=== PATIENT | male | born 1955 | race Caucasian/White ===

== ENCOUNTER → 2020-05-16 | Outpatient (CLI) | payer BC, OTHER ==
[~2020-05-16] MED LIST: ALLOPURINOL 30300 M1 PO; CLARITIN10 M3 PO; ESOMEPRAZOLE MA40 MG PO; EXCEDRIN PM PO; FISH OIL 1,4001 EACH PO; IBUPROFEN PM C1 EACH PO; LISINOPRIL-HCT1 EACH PO; MELATONIN10 M3 PO; SIMVASTATIN40 MG PO; XARELTO20 MG PO
== END ==
LOC: LAB 07:22
PROVIDERS: ATTEND Student in an Organized Health Care Education/Training Program
DX: Z01.818 Encounter for other preprocedural examination (principal); Z11.59 Encounter for screening for other viral diseases

== ENCOUNTER 2020-05-20 13:04 | Inpatient (IN) | payer BC ==
[2020-05-16 11:26] LABS: HEMATOCRIT 39.1 % (42.0-52.0); HEMOGLOBIN 13.6 gm/dL (14.0-18.0); MCH 32.2 pg (26.0-34.0); MCHC 34.8 g/dL (28.0-37.0); MCV 92.4 fL (80.0-100.0); RBC 4.23 mil/uL (4.50-6.00); RDW 14.1 % (10.5-14.5); WBC 4.2 thou/uL (4.0-11.0)
[2020-05-16 11:37] LABS: ALBUMIN 3.7 g/dL (3.4-5.0); CALCIUM 8.9 mg/dL (8.5-10.1); CREATININE 1.1 mg/dL (0.7-1.3); POTASSIUM 3.9 mmol/L (3.5-5.1); URINE BILIRUBIN NEGATIVE (Negative); URINE BLOOD NEGATIVE (Negative); URINE CLARITY CLEAR; URINE COLOR YELLOW; URINE GLUCOSE-RANDOM* NEGATIVE (Negative); URINE KETONES NEGATIVE (Negative); URINE LEUKOCYTES-REFLEX NEGATIVE (Negative); URINE NITRITE-REFLEX NEGATIVE (Negative); URINE PROTEIN (DIPSTICK) NEGATIVE (Negative); URINE UROBILINOGEN 0.2 E.U./dl (0.2-1.0)
[2020-05-16 11:47] LABS: INR 1.3
--- NOTE | 2020-05-17 11:34 | EKG ---
[facility] [place] [address] ELECTROCARDIOGRAM REPORT Name: ELIZABETH WRIGHT Room #: PRE [facility] M.R.#: [id number] Admission: Attend Phys: Paramjit Hernandez MD Discharge: Date of : 55 Report #: [id number] THIS REPORT FOR: cc: Nima Pearce MD, Christopher MD Couchonnal,Valdez Bardales MD ~ THIS REPORT FOR: //name// [facility] Test Date: 2020-05-16 Test Time: 10:40:57 Pat Name: ELIZABETH WRIGHT Department: Room: Gender: [employer]ing [employer]: [facility] : 1955 Requested By: Paramjit Hernandez Order Number: [id number] MD: Valdez Babcock Measurements Intervals Busy Rate: 54 P: 15 OR: 180 QRS: 10 QRSD: 89 T: 12 QT: 434 QTc: 412 Interpretive Statements Sinus rhythm Abnormal R-wave progression, early transition No previous ECG available for comparison Electronically Signed On 05-17-2020 11:33:58 CDT by Valdez Babcock [email or web address] <ELECTRONICALLY SIGNED> By: Valdez Babcock MD 05/17/20 1133 1040 1040 Valdez Babcock MD /BRANDY
[~2020-05-20] VITALS: Ht 160 cm; Wt 68.0 kg
[2020-05-20 13:48] VITALS: BP 122/84
[2020-05-20 19:35] VITALS: BP 129/75
--- NOTE | 2020-05-21 04:05 | NUR ---
PT WAS ADMITTED TO THE UNIT FROM PACU IN A STBALE CONDITION.PT ON O2 AT 2L/NC.DRSG TO HIS R KNEE C/D/I.POLAR PACK,SCD AND JARRET HOSE IN PLACE.URINAL AT BEDSIDE.FALL PRECAUTIONS IN PLACE,CALL LIGHT WITHIN REACH.
[2020-05-21 04:23] VITALS: BP 112/61
[2020-05-21 06:11] LABS: HEMATOCRIT 39.4 % (42.0-52.0); HEMOGLOBIN 13.6 gm/dL (14.0-18.0); MCH 31.9 pg (26.0-34.0); MCHC 34.6 g/dL (28.0-37.0); MCV 92.2 fL (80.0-100.0); RBC 4.27 mil/uL (4.50-6.00); WBC 9.9 thou/uL (4.0-11.0)
[2020-05-21 07:39] VITALS: BP 105/64
--- NOTE | 2020-05-21 08:50 | O ---
[address] [address] OPERATIVE REPORT Name: ELIZABETH WRIGHT Norma Room #: 445-P [facility] IN .R.#: [id number] Admission: 05/20/20 Attend Phys: Paramjit Hernandez MD Discharge: Date of : 55 Report #: [id number] THIS REPORT FOR: cc: Nima Pearce MD,Nima Hernandez,Paramjit Hernandez MD ~ CC: Nima Hernandez DATE OF SERVICE: 05/20/2020 SERVICE: Orthopedics. FACILITY: [facility]. SURGEON: Paramjit Hernandez MD ENVIRONMENTAL SERVICES TECHNICIAN: Gabby Oreilly NP. INDICATION FOR ENVIRONMENTAL SERVICES TECHNICIAN: Retraction, assistance with the arthroplasty and closure. PREOPERATIVE DIAGNOSES: 1. Right knee pain. 2. Right knee varus type medial compartment osteoarthritis. POSTOPERATIVE DIAGNOSES: 1. Right knee pain. 2. Right knee varus type medial compartment osteoarthritis. PROCEDURES: 1. Right knee unicompartmental arthroplasty. 2. Robotic-assisted arthroplasty. COMPLICATIONS: None. DRAINS: None. SPECIMENS: None. ESTIMATED BLOOD LOSS: 50. FINDINGS: [employer] size 5 Oxinium femoral component with ZUK size 4 tibial component and 9 mm fixed bearing insert. The patient is a 65-year-old gentleman with history of significant right knee [address] [address] OPERATIVE REPORT Name: ELIZABETH WRIGHT Room #: 445-P [facility] IN [place]#: [id number] Admission: 05/20/20 Attend Phys: Paramjit Hernandez MD Discharge: Date of : 55 Report #: [id number] arthritis with medial-sided symptoms and ppro-[id number] changes medially with osteophytes and sclerosis. We tried conservative therapy including rest, activity modifications, physical therapy, oral medicines, injections, bracing and activity modifications, but ultimately he wished to move forward with definitive surgical treatment including arthroplasty. The risks, benefits, alternatives, and indication of surgery discussed with him in detail. Risks include but not limited to pain, bleeding, infection, injury to nerves or blood vessels, persistent pain despite surgical intervention, failure of any procedures, need for further surgery including revision as well as complications related to anesthesia such as stroke, heart attack, pulmonary complications, thromboembolic disease and . Despite these risks, he wished to proceed. PROCEDURE IN DETAIL: After right lower extremity was correctly identified in the preoperative holding area as the operative extremity, the patient underwent placement of a single shot regional nerve block. He was then taken to the operating room where general anesthesia was induced without complication with LMA. He was padded appropriately. Prophylactic antibiotics were administered at appropriate time as well as TXA. Tourniquet was applied to right leg. Right lower extremity was then prepped and draped in standard sterile fashion. Time-out procedure was performed. Esmarch was used. Tourniquet inflated to 250 mmHg. Standard anterior approach with medial parapatellar arthrotomy was performed and exposure of the medial compartment. The anterior horn of the medial meniscus was transected and resected. The cruciates, the lateral meniscus and the cartilage in the patellofemoral and lateral compartment were protected. 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 The trochlea was intact and the lateral compartment was intact. The ACL was intact as well. He was a good candidate for unicompartmental arthroplasty as he had grade 4 changes of the medial compartment and was szxj-uw-fhgo with osteophytes. The rongeur was used to resect the osteophytes and then we placed the checkpoints in the femur and the tibia and then placed the half pins in the typical fashion and then set up for the [employer] computer navigation assisted system. The templating was then utilized. We selected our implants and planned for correction of his 9 degrees of varus to approximately 5 degrees of varus and set the flexion and extension gaps. The initial cuts were made and then the trials were placed. Then, we trialled with a 9 mm poly insert and he was well balanced and had good stability through mid flexion as well as flexion and extension. I was happy with this. So we proceeded with final preparation of the bone surfaces and then injected first 40 mL of the periarticular injection cocktail into the posterior capsule. Note that when the posterior horn of the medial meniscus was resected, 3 loose bodies were seen to egress from the posterior capsular area and these were excised and then a finger was placed posteriorly to ensure there were no further loose bodies. A small Baldwin cyst was ruptured and evacuated. After irrigation and preparation of the bone, the tibial component was cemented into position followed by the femoral component and then we allowed the cement to cure after removing the excess cement with the knee in extension and the poly trial snapped into position. The remaining portion of the [facility] [address] [place] [address] OPERATIVE REPORT Name: ELIZABETH WRIGHT Room #: 445-P [facility] IN M.R.#: [id number] Admission: 05/20/20 Attend Phys: Paramjit Hernandez MD Discharge: Date of : 55 Report #: [id number] periarticular injection cocktail was then infiltrated in the periosteum and then around the soft tissues and then the tourniquet was let down. Hemostasis was achieved. We took the trial out, irrigated once more and then placed the final poly into position, snapped into position and assessed stability. I was happy with the appearance of the implant and stability throughout all range of motion. Arthrotomy was then closed with 0 Vicryl suture in dlxyol-ip-dibdm fashion over 1 gram of vancomycin powder and then the skin was closed with 2-0 Vicryl followed by running subcuticular 3-0 Monocryl. Dermabond and then a negative pressure dressing was applied followed by a thigh high compression stocking and a PolarCare device. The patient was awakened from anesthesia and taken to recovery room in stable condition. No complications. All counts were correct. <ELECTRONICALLY SIGNED> By: Paramjit Hernandez MD 05/21/20 0850 1800 181 Paramjit Hernandez MD /nt
--- NOTE | 2020-05-21 09:40 | NUR ---
ASSESSMENT: CM REVIEWED CHART AND SPOKE WITH PATIENT. PT IS HERE DUE TO RIGHT UKA. PT IS ALERT AND ORIENTED X4. PT REPORTS THAT HE LIVES IN A HOUSE ALONE. PT REPORTS HAVING 4 STEPS TO ENTER THE HOME WITH A HANDRAIL AND NO STEPS ONCE INSIDE. PT STATES THAT HE HAS OUTPATIENT THERAPY ALREADY ARRANGED AT [facility] FOR TUESDAY AND REPORTS HE HAS BEEN GOING THERE FOR A WHILE. PT STATES THAT HIS DAUGHTER WILL TAKE HIM. PT IS NORMALLY INDEPENDENT WT ADLS BUT IS NEEDED A WALKER AT DISCHARGE. CM SPOKE WITH PT AND HE HAS NO PREFERENCE OF [employer]. CM NOTIFIED LI[employer] AT [employer] AND SHE IS GOING TO CHECK INSURANCE AND LEFT CM KNOW. CM WILL CONTINUE TO FOLLOW.
[2020-05-21 09:42] VITALS: BP 105/64
--- NOTE | 2020-05-21 11:27 | NUR ---
Assumed care of pt at 0700. Pt a&ox4. Pain well controlled with prn pain meds. Up SBA with gait-belt and walker. Home walker delivered in hospital room. Dressing c/d/i. Worked with physical therapy. Pt will dicharge to home. Call light within reach.
[2020-05-21 14:04] VITALS: BP 105/64
== END 2020-05-21 15:00 | disposition home or self-care (01) | DRG 470 ==
LOC: OR 13:04 → TBA 13:13 → OR 15:07 → 4S 19:43 → OR 19:44 → 4S 05-21 15:00
PROVIDERS: ADMIT Orthopaedic Surgery Sports Medicine; ATTEND Orthopaedic Surgery Sports Medicine
DX: M17.11 Unilateral primary osteoarthritis, right knee (principal)
CPT/HCPCS: 10195; 50010; 50101; 50415; 50954; 51130; 51225; 51320; 52001; 52282; 53078; 53370; 54118; 56527; 56528; 57095; 57103; 57110; 57127; 57179; 62110; 62900; 70005